=== PATIENT | male | born 1995 | race African-American/Black ===

== ENCOUNTER 2021-02-05 15:04 | Emergency (ER) | payer SELFPAY ==
[~2021-02-05] VITALS: Ht 193 cm; Wt 80.0 kg
--- NOTE | 2021-02-05 15:16 | ED EENT ---
History of Present Illness General Chief Complaint: Dental Problems/Pain Stated Complaint: DENTAL PAIN History of Present Illness Date Seen by Provider: Feb 05, 2021 Time Seen by Provider: 15:13 Initial Comments 26-year-old male presents with left dental pain. Patient reports the pain has been gone for at least 2 months. Patient is currently on a round of amoxicill in. Patient is supposed to follow-up with a dentist in [place] and has not even called to make the appointment yet. Patient has not taken anything for the pain and has not tried Tylenol, ibuprofen or any oral gel. Patient presents because he reports the pain is significant worse today. Patient states he was told he needs to have his wisdom tooth taken out. Allergies and Home Medications Allergies Coded Allergies: No Known Drug Allergies (Unverified , 02/05/21) Patient Home Medication List Home Medication List Reviewed: Yes Tramadol HCl (Tramadol HCl) 50 Mg Tablet, 50 MG PO Q8H PRN for PAIN Prescribed by: MARGARETTE NOE on 02/05/21 1644 Review of Systems Review of Systems Constitutional: see HPI Ears: No Symptoms Reported Nose: no symptoms reported Mouth: see HPI Throat: no symptoms reported Respiratory: no symptoms reported Cardiovascular: no symptoms reported Musculoskeletal: no symptoms reported Skin: no symptoms reported Neurological: No Symptoms Reported Hematologic/Lymphatic: No Symptoms Reported Physical Exam Vital Signs Vital Signs - First Documented 02/05/21 15:47 Temp 36.4 Pulse 59 Resp 16 B/P (MAP) 143/81 (101) Pulse Ox 97 Height, Weight, BMI Height: '" Weight: lbs. oz. kg; BMI Method: General Appearance: WD/WN, no apparent distress Mouth/Throat: dental tenderness (Left back molar) Neck: full range of motion, supple Cardiovascular: normal peripheral pulses, regular rate, rhythm Respiratory: lungs clear, normal breath sounds Neurologic/Psychiatric: alert, normal mood/affect, oriented x 3 Skin: normal color, warm/dry Progress/Results/Core Measures Results/Orders My Orders Orders - MARGARETTE NOE DO Ketorolac Injection (Toradol Injection) (02/05/21 15:31) Vital Signs/I&O 02/05/21 02/05/21 15:47 15:57 Temp 36.4 36.4 Pulse 59 59 Resp 16 16 B/P (MAP) 143/81 (101) 143/81 Pulse Ox 97 97 Progress Progress Note : Progress Note Discussed with patient we will give him enough medication to get through the holiday weekend. That he needs to call on Sunday to follow-up with his primary care provider or dentist since this is been going on for 2 months. He should take the amoxicillin that is already prescribed. Patient stable and discharged Departure Impression Primary Impression: Pain, dental Disposition: HOME, SELF-CARE Condition: Stable Departure-Patient Inst. Patient Instructions: Dental Pain Add. Discharge Instructions: Vodka swish and and spit Tylenol or ibuprofen every 4 hours as needed for pain Topical oral gel lidocaine as needed for pain Follow-up with your dentist on Sunday All discharge instructions reviewed with patient and/or family. Voiced understanding. Scripts Tramadol HCl (Tramadol HCl) 50 Mg Tablet 50 MG PO Q8H PRN for PAIN for 3 Days, #5 TAB 0 Refills Prov: MARGARETTE NOE DO 02/05/21 MARGARETTE NOE DO Feb 05, 2021 15:16
[2021-02-05] MEDS ORDERED: KETOROLAC 60 MG/2 ML VIAL IM STA (15:31)
[2021-02-05] MEDS ORDERED: TRM50T PO (15:46)
[2021-02-05 15:57] VITALS: BP 143/81
== END 2021-02-05 15:50 | disposition home or self-care (01) ==
LOC: ER FS 15:05
DX: K08.89 Other specified disorders of teeth and supporting structures (principal)
CPT/HCPCS: 99284